=== PATIENT | female | born 1960 | race Caucasian/White ===

== ENCOUNTER 2022-03-05 15:30 | Emergency (ER) | payer OTHER, SELFPAY ==
[2022-03-05 16:03] LABS: Absolute Neutrophil Ct (ANC) 4.15 x10^3/uL (1.4-6.9); Basophil (Absolute #) 0.07 x10^3/uL (0-0.4); Eosinophil % 3.1 % (0.00-5.0); Eosinophil (Absolute #) 0.26 x10^3/uL (0-0.5); Hematocrit 45.6 % (35-47); Hemoglobin 15.1 g/dL (12.0-16.0); Lymphocyte (Absolute #) 2.97 x10^3/uL (1.0-4.6); Lymphocytes % 35.6 % (24.0-44.0); Mean Cell Volume 85.2 fL (78-100); Mean Corpuscular Hemoglobin 28.2 pg (26-32); Mean Corpuscular Hgb Concent. 33.1 g/dL (32-36); Mean Platelet Volume 10.3 fL (7.5-11.0); Monocyte (Absolute #) 0.88 x10^3/uL (0.0-1.3); Monocytes % 10.5 % (0.0-12.0); Neutrophil % 49.8 % (36.0-66.0); Platelet Count 243 x10^3/uL (150-450); Red Blood Count 5.35 x10^6/uL (4.1-5.4); Red Cell Distribution Width 13.5 % (11.5-14.0); White Blood Count 8.4 x10^3/uL (4.0-10.5)
--- NOTE | 2022-03-05 16:05 | XRAY ---
Indication: Chest pain and short of breath. Comparison: None Portable chest demonstrates normal heart and lungs. Bony thorax intact with mild osteopenia and degenerative changes.
[2022-03-05 16:21] LABS: INR 0.98 (0.8-3.0); PROTIME 10.4 SECONDS (9.4-12.5); PTT 24.8 SECONDS (25.1-36.5)
--- NOTE | 2022-03-05 16:25 | ERPHSYRPT ---
- History of Present Illness Historian: patient, EMS Exam Limitations: other (Pt poor historian) Patient Subjective Stated Complaint: C/O Chest pain (left sided). Pain does not radiate anywhere. Patient fell at home this am during a seizure and she is unsure if she hit her chest or torso during her fall. Fell around 10:30am and chest pain started around 12noon today. Triage Nursing Assessment: Patient arrived by ambulance. She is alert and oriented but a poor historian. No SOB noted. Skin warm and dry. Chest is tender to touch. No skin alterations noted. Physician History: 61 yo wf brought to ER by EMS w mid-sternal chest pain since 9:00AM. Pt had a seizure earlier today and possible hit her chest. Pain is substernal wo radiation. It is sharp, does not radiate, and is currently 3/10 on scale. Nothing makes it better or worse. She denies CAD/CT but has a h/o HTN/DM/hyperlipidemia. She smoked 2ppd until 15 yrs ago. Cough/fever denied. 324 ASA given in route. Timing/Duration: other (9AM) Activities at Onset: other (After fall) Quality: sharpness Location: substernal Chest Pain Radiation: no radiation Severity of Pain-Max: moderate Severity of Pain-Current: mild Modifying Factors: Improves With: nothing Associated Symptoms: No nausea, No vomiting, No palpitations, No heartburn, No abdominal pain, No shortness of breath, No cough, No hurts to breathe, No diaphoresis, No chills, No fever, No fatigue, No weakness, No swelling/lump in chest, No syncope, No rash, No headache, No dizziness, No edema, No back pain Prior Chest Pain/Cardiac Workup: no prior chest pain Nitro Today/Relief: no nitro taken today Aspirin Treatment Today: 325 mg x 1, provided by EMS Allergies/Adverse Reactions: No Known Drug Allergies Allergy (Verified 03/05/22 15:41) Home Medications: Levetiracetam [Keppra] 1,000 mg PO BID 03/05/22 [History] Metoprolol Tartrate 50 mg [Lopressor 50 MG] 1 tab PO BID 03/05/22 [History] Hx Tetanus, Diphtheria Vaccination/Date Given: Yes Hx Influenza Vaccination/Date Given: No Hx Pneumococcal Vaccination/Date Given: No Immunizations Up to Date: Yes Travel Risk - International Travel Have you traveled outside of the country in past 3 weeks: No - Coronavirus Screening Are you exhibiting any of the following symptoms?: No Close contact with a COVID-19 positive Pt in past 14-21 Days: No - Vaccine Status Have you recieved a Covid-19 vaccination: Yes [employer]: Unknown - Vaccination Dates Dates if Unknown: 2020 - Review of Systems Constitutional: No Symptoms Eyes: No Symptoms Ears, Nose, & Throat: No Symptoms Respiratory: No Symptoms Cardiac: No Symptoms, Chest Pain Genitourinary Symptoms: No Symptoms Musculoskeletal: No Symptoms Skin: No Symptoms Neurological: No Symptoms Psychological: No Symptoms Endocrine: No Symptoms Hematologic/Lymphatic: No Symptoms Immunological/Allergic: No Symptoms - Past Medical History Pertinent Past Medical History: Yes Neurological History: Seizures Cardiac History: Hypertension - Past Surgical History Past Surgical History: Yes Female Surgical History: Section - Social History Smoking Status: Never smoker Exposure to second hand smoke: No Drug Use: none Patient Lives Alone: No (Sister) Significant Family History: no pertinent family hx - Nursing Vital Signs Nursing Vital Signs: Initial Vital Signs Temperature 98 F 03/05/22 15:40 Pulse Rate 96 H 03/05/22 15:40 Respiratory Rate 18 03/05/22 15:40 Blood Pressure 135/63 03/05/22 15:40 O2 Sat by Pulse Oximetry 99 03/05/22 15:40 Pain Scale Pain Intensity 0 WNL - Physical Exam General Appearance: no apparent distress Eye Exam: PERRL/EOMI, eyes nml inspection Ears, Nose, Throat Exam: normal ENT inspection, TMs normal, pharynx normal, moist mucous membranes Neck Exam: normal inspection, non-tender, supple, full range of motion, No meningismus, No mass, No Brudzinski, No Kernig's, No carotid bruit Respiratory Exam: normal breath sounds, chest tenderness (Mid-sternmal area very TTP) Cardiovascular Exam: regular rate/rhythm, normal heart sounds, normal peripheral pulses, capillary refill <2 sec, No murmur Gastrointestinal/Abdomen Exam: soft, normal bowel sounds, No tenderness Back Exam: normal inspection, normal range of motion, No CVA tenderness, No vertebral tenderness Extremity Exam: normal inspection, normal range of motion Neurologic Exam: alert, oriented x 3, cooperative, live in caregiver II-XII nml as tested, normal mood/affect, nml cerebellar function, nml station & gait, sensation nml, No motor deficits, No sensory deficit Skin Exam: normal color, warm, dry, No rash Lymphatic Exam: No adenopathy SpO2 Interpretation: normal SpO2: 99 O2 Delivery: Room Air - Course Nursing assessment & vital signs reviewed: Yes EKG Interpreted by Me: RATE (NSR/Rate 90/Occ PVC's/Normal QT-QTc/No acute ST segment changes) - CT Exams Chest CT Interpretation: Discussed w/radiologist (CTA chest neg for PE) Ordered Tests: Active Orders 24 hr Category Date Time Status EKG-ER Only STAT Care 03/05/22 15:46 Completed CHEST 1 VIEW (PORTABLE) Stat Exams 03/05/22 15:46 Completed CHEST WITH CONTRAST [CT] Stat Exams 03/05/22 18:23 Completed CBC W DIFF Stat Lab 03/05/22 16:00 Completed CMP Stat Lab 03/05/22 16:00 Completed D-DIMER QUANTITATIVE Stat Lab 03/05/22 16:51 Completed NT PRO BNP Stat Lab 03/05/22 16:00 Completed PROTIME WITH INR Stat Lab 03/05/22 16:00 Completed PTT Stat Lab 03/05/22 16:00 Completed TROPONIN Q4H Lab 03/05/22 16:00 Completed TROPONIN Q4H Lab 03/05/22 19:12 Completed Lab/Rad Data: Laboratory Result Diagrams 03/05/22 16:00 03/05/22 16:00 Laboratory Results 03/05/22 03/05/22 03/05/22 Range/Units 19:12 16:51 16:00 WBC (4.0-10.5) x10^3/uL RBC (4.1-5.4) x10^6/uL Hgb (12.0-16.0) g/dL Hct (35-47) % MCV (78-100) fL MCH (26-32) pg MCHC (32-36) g/dL RDW (11.5-14.0) % Plt Count (150-450) x10^3/uL MPV (7.5-11.0) fL Gran % (36.0-66.0) % Immature Gran % (Auto) (0.00-0.4) % Nucleat RBC Rel Count (0.00-0.1) % Eos # (Auto) (0-0.5) x10^3/uL Immature Gran # (Auto) (0.00-0.03) x10^3u/L Absolute Lymphs (auto) (1.0-4.6) x10^3/uL Absolute Monos (auto) (0.0-1.3) x10^3/uL Absolute Nucleated RBC (0.00-0.01) x10^3u/L Lymphocytes % (24.0-44.0) % Monocytes % (0.0-12.0) % Eosinophils % (0.00-5.0) % Basophils % (0.0-0.4) % Absolute Granulocytes (1.4-6.9) x10^3/uL Basophils # (0-0.4) x10^3/uL PT (9.4-12.5) SECONDS INR (0.8-3.0) APTT (25.1-36.5) SECONDS D-Dimer 0.80 H* (0.0-0.50) mg/L Sodium (137-145) mmol/L Potassium (3.5-5.1) mmol/L Chloride (98-107) mmol/L Carbon Dioxide (22-30) mmol/L Anion Gap (5-15) MEQ/L BUN (7-17) mg/dL Creatinine (0.52-1.04) mg/dL Estimated GFR ML/MIN Glucose (74-106) mg/dL Calcium (8.4-10.2) mg/dL Total Bilirubin (0.2-1.3) mg/dL AST (14-36) U/L ALT (0-35) U/L Alkaline Phosphatase (38-126) U/L Troponin I < 0.012 < 0.012 (0.000-0.034) ng/mL NT-Pro-B Natriuret Pep (0-900) pg/mL Serum Total Protein (6.3-8.2) g/dL Albumin (3.5-5.0) g/dL 03/05/22 03/05/22 03/05/22 Range/Units 16:00 16:00 16:00 WBC 8.4 (4.0-10.5) x10^3/uL RBC 5.35 (4.1-5.4) x10^6/uL Hgb 15.1 (12.0-16.0) g/dL Hct 45.6 (35-47) % MCV 85.2 (78-100) fL MCH 28.2 (26-32) pg MCHC 33.1 (32-36) g/dL RDW 13.5 (11.5-14.0) % Plt Count 243 (150-450) x10^3/uL MPV 10.3 (7.5-11.0) fL Gran % 49.8 (36.0-66.0) % Immature Gran % (Auto) 0.2 (0.00-0.4) % Nucleat RBC Rel Count 0.0 (0.00-0.1) % Eos # (Auto) 0.26 (0-0.5) x10^3/uL Immature Gran # (Auto) 0.02 (0.00-0.03) x10^3u/L Absolute Lymphs (auto) 2.97 (1.0-4.6) x10^3/uL Absolute Monos (auto) 0.88 (0.0-1.3) x10^3/uL Absolute Nucleated RBC 0.00 (0.00-0.01) x10^3u/L Lymphocytes % 35.6 (24.0-44.0) % Monocytes % 10.5 (0.0-12.0) % Eosinophils % 3.1 (0.00-5.0) % Basophils % 0.8 (0.0-0.4) % Absolute Granulocytes 4.15 (1.4-6.9) x10^3/uL Basophils # 0.07 (0-0.4) x10^3/uL PT 10.4 (9.4-12.5) SECONDS INR 0.98 (0.8-3.0) APTT 24.8 L (25.1-36.5) SECONDS D-Dimer (0.0-0.50) mg/L Sodium 138 (137-145) mmol/L Potassium 4.1 (3.5-5.1) mmol/L Chloride 98 (98-107) mmol/L Carbon Dioxide 35 H (22-30) mmol/L Anion Gap 9.5 (5-15) MEQ/L BUN 15 (7-17) mg/dL Creatinine 0.63 (0.52-1.04) mg/dL Estimated GFR > 60.0 ML/MIN Glucose 79 (74-106) mg/dL Calcium 8.9 (8.4-10.2) mg/dL Total Bilirubin 0.40 (0.2-1.3) mg/dL AST 26 (14-36) U/L ALT 28 (0-35) U/L Alkaline Phosphatase 107 (38-126) U/L Troponin I (0.000-0.034) ng/mL NT-Pro-B Natriuret Pep 252 (0-900) pg/mL Serum Total Protein 6.9 (6.3-8.2) g/dL Albumin 4.1 (3.5-5.0) g/dL - Progress Progress: improved Progress Note: 03/05/22 19:54 Pt pain free before discharge 03/05/22 21:38 Pt w neg Trop x2/neg CTA of chest/Pain very reproducible to palpation/She most likely hit her chest when she had a seizure/Pt has a long h/o a seizure disorder Counseled pt/family regarding: lab results, diagnosis, need for follow-up, rad results - Departure Departure Disposition: Home Clinical Impression: Contusion, chest wall Condition: Stable Critical Care Time: No Referrals: CARLITOS SUAREZ [Primary Care Provider] - Follow up/PCP as directed Instructions: Chest Pain (DC) Additional Instructions: Follow up with your family Motrin/Tylenol for pain Return to ER for increasing pain, shortness of breath, or temperature greater than 100.5
[2022-03-05 16:29] LABS: ALBUMIN 4.1 g/dL (3.5-5.0); ALKALINE PHOSPHATASE 107 U/L (38-126); ANION GAP 9.5 MEQ/L (5-15); BLOOD UREA NITROGEN 15 mg/dL (7-17); CHLORIDE 98 mmol/L (98-107); Calcium 8.9 mg/dL (8.4-10.2); Carbon Dioxide 35 mmol/L (22-30); Creatinine 1 0.63 mg/dL (0.52-1.04); EST GLOMERULAR FILTRATION RATE > 60.0 ML/MIN; Glucose 79 mg/dL (74-106); NT PRO BNP 252 pg/mL (0-900); Potassium 4.1 mmol/L (3.5-5.1); SGOT/AST 26 U/L (14-36); SGPT/ALT 28 U/L (0-35); SODIUM 138 mmol/L (137-145); Total Protein 6.9 g/dL (6.3-8.2)
--- NOTE | 2022-03-05 19:34 | XRAY ---
Indication: Chest pain. Elevated d-dimer. Multiple contiguous images obtained through the chest using 100 cc Isovue 370 contrast and PE protocol. Comparison: None Good opacification of the pulmonary arteries to include the lobar and segmental branches. No pulmonary embolus. Heart not enlarged. Aorta is normal in course and caliber. Tiny subcarinal calcified node. No pathologic mediastinal/hilar lymphadenopathy. Lungs demonstrates tiny left base calcified granuloma. Bony thorax intact with minimal degenerative changes to the spine. Limited upper abdomen demonstrates fatty liver. Impression: 1. Normal CT PE exam. 2. Incidental fatty liver and old granulomatous disease.
[2022-03-05 20:16] VITALS: BP 152/95; PULSE 93
[2022-03-05 21:41] VITALS: O2SAT 99
== END 2022-03-05 20:17 | disposition home or self-care (01) ==
LOC: ED 15:30
DX: S20.214A Contusion of middle front wall of thorax, initial encounter (principal); W19.XXXA Unspecified fall, initial encounter; R07.9 Chest pain, unspecified; I10 Essential (primary) hypertension; E11.9 Type 2 diabetes mellitus without complications; E78.5 Hyperlipidemia, unspecified; Z79.899 Other long term (current) drug therapy
CPT/HCPCS: 36000; 36415; 71045; 71260; 80053; 83880; 84484; 85025; 85379; 85610; 85730; 93005; 93041; 99284